=== PATIENT | male | born 1960 | race Caucasian/White ===

== ENCOUNTER 2018-04-05 10:33 | Outpatient (REF) | payer BC, SELFPAY ==
[2018-04-05 19:41] LABS: Anion Gap 9.3 mmol/L (3-11); BUN 19 mg/dL (7-18); CO2 29.7 mmol/L (21.0-32.0); CREATININE 0.93 mg/dL (0.70-1.30); Calcium 9.2 mg/dL (8.5-10.1); Chloride 101 mmol/L (98-107); Glucose 107 mg/dL (70-100); Potassium 4.4 mmol/L (3.5-5.1); Sodium 140 mmol/L (136-145)
[2018-04-06 17:22] LABS: HDL Cholesterol 46 mg/dL (40-60); LDL CHOLESTEROL 94 mg/dL (<100); Triglyceride 112 mg/dL (30-150)
[2018-04-06 17:39] LABS: Cholesterol 166 mg/dL (50-200)
[2018-04-07 10:09] LABS: PSA, Screening 0.6 ng/ml (0-3.5)
[2018-04-07 10:15] LABS: Hepatitis C Ab w Rflx HCV PCR Negative (NEGAT)
== END 2018-04-05 10:53 ==
LOC: NCHCN 10:33
PROVIDERS: PCP Internal Medicine; Visit Provider Family Medicine
DX: Z00.00 Encounter for general adult medical examination without abnormal findings (principal); E78.5 Hyperlipidemia, unspecified; I10 Essential (primary) hypertension; Z12.5 Encounter for screening for malignant neoplasm of prostate; Z80.42 Family history of malignant neoplasm of prostate; Z11.59 Encounter for screening for other viral diseases
CPT/HCPCS: 80048; 80061; 83721; 84153; 86803

== ENCOUNTER 2018-07-23 09:38 | Emergency (ER) | payer BC, SELFPAY ==
--- NOTE | 2018-07-23 09:45 | NUR.NOTE ---
pt has had a steady pain 2/10 pain in his lower right back for the past 8-14 months. after sleeping on the couch last night PT woke up to 9/10 pain in the same location constants pain not pulsating
[2018-07-23 09:47] VITALS: BP 166/104; PULSE 89; RESP 16; TEMP 37.2; O2SAT 96
--- NOTE | 2018-07-23 10:12 | DI.RAD_ITS ---
SYMPTOM/DIAGNOSIS: BACK PAIN LUMBAR SPINE: There are no prior comparison exams. There is no evidence of compression fracture. Degenerative disc changes are noted throughout. There are also facet degenerative changes causing slight spondylolisthesis at L 4-5. There is also a degenerative scoliosis. The SI joints are unremarkable. IMPRESSION: Degenerative changes. No acute abnormality.
--- NOTE | 2018-07-23 10:14 | ED.GENADUL_ITS ---
Discharge Plan Disposition Patient Disposition: HOME Discharge Details Chief Complaint: Nk/Back Pain Primary Care Provider: Judson Donovan ED Provider: Ramon Horton Home Meds and New Rx's Prescriptions: New diclofenac potassium 50 mg tablet 50 mg PO TID PRN (Reason: pain) Qty: 15 RF: 0 cyclobenzaprine 10 mg tablet 10 mg PO TID PRN (Reason: muscle spasm) Qty: 20 RF: 0 Continued atorvastatin 20 mg Tablet 20 mg PO DAILY RF: 0 losartan-hydrochlorothiazide 50-12.5 mg Tablet 1 tab PO DAILY RF: 0 Discharge Data Discharge Date/Time-TO BE ENTERED AT DEPARTURE: 07/23/18 11:52 Medical Decision Making Patient presenting to the emergency department for chief complaint of back pain. Patient states long ongoing back pain for greater than 1 year but last night he slept on the couch and noticed waking up this morning having significant wors ening discomfort. Patient denies any injury or trauma, fall, saddle anesthesia, fever chills, changes in bowel or bladder function. Patient does have tenderness to the lumbar back both vertebral and paraspinal muscles, with more so noted on the right than the left. Patient otherwise has no neurological dysfunction, no signs of cauda equina, no signs of epidural abscess, no neurological dysfunction of lower extremities. Given that patient does state ongoing back pain for greater than 1 year that has not been imaged in the past I did offer patient radiological imaging of the back which she agreed to. Pending results patient given Flexeril, ketorolac, and lidocaine patch Review of radiological imaging and radiologist interpretation shows IMPRESSION: Moderate to severe multilevel degenerative changes including degenerative disc disease, spondylosis and facet degenerative changes. Reassessed patient and patient did state some improvement of discomfort. Patient was prescribed diclofenac and Flexeril to use at home and encouraged to follow-up with his primary care provider for reassessment if not improving. Patient was also given a referral to physical therapy. Return precautions were discussed. After discussion of diagnosis and plan of care patient has no further needs, questions, or concerns and states clear understanding to return to the emergency department for any worsening symptoms. HPI General Mode of arrival: ambulatory . Date/Time Provider Initiated Documentation: 07/23/18 09:50 . Limitations to Documentation: no limitations . Information obtained by: patient, family and RN notes reviewed . History of Present Illness 57 year old M presents to the emergency department with the chief complaint of back pain, described as severe, with intensity rated at 9. Quality is described as sharp, and is localized to the back. Patient reports radiation to (right hip). Patient started experiencing this hour(s) (5) and it has been constant. Movement worsens symptoms . Patient notes no other symptoms.. Patient did receive the following treatments prior to arrival, NSAID Related Data Home Medications Medication Instructions Recorded Confirmed atorvastatin 20 mg PO DAILY 07/23/18 07/23/18 cyclobenzaprine 10 mg PO TID PRN #20 tab 07/23/18 diclofenac potassium 50 mg PO TID PRN #15 tab 07/23/18 losartan-hydrochlorothiazide 1 tab PO DAILY 07/23/18 07/23/18 Previous Rx's Medication Instructions Recorded cyclobenzaprine 10 mg PO TID PRN #20 tab 07/23/18 diclofenac potassium 50 mg PO TID PRN #15 tab 07/23/18 Allergies Allergy/AdvReac Type Severity Reaction Status Date / Time No Known Allergies Allergy Unverified 07/23/18 09:49 General Stated Complaint: Nk/Back Pain ANTHONY: 3 Review of Systems Constitutional Denies chills and Denies fever(s) Cardiovascular Denies chest pain and Denies dyspnea Respiratory Denies cough and Denies dyspnea Gastrointestinal Denies abdominal pain, Denies change in bowel habits, Denies diarrhea, Denies na usea and Denies vomiting Genitourinary Denies difficulty urinating and Denies urinary incontinence Musculoskeletal Reports as per HPI and Reports back pain Neurologic Denies sensory deficit PFS Social History Smoking/Tobacco Use Status: Never Alcohol Intake: current Alcohol Intake frequency: a few times a month Drug use: Occasionally Substance use type: marijuana Do you feel safe at home: Yes Do you feel safe in your relationship?: Yes Exam Const General: cooperative Orientation: alert, awake and oriented x3 Neck Neck: normal visual inspection, full ROM and no meningeal signs Resp Effort & Inspection: normal respiratory effort Auscultation: clear to auscultation bilaterally Cardio Rate: regular rate Rhythm: regular rhythm Heart Sounds: S1 normal and S2 normal GI Palpation: no hepatosplenomegaly, no aortic enlargement, no masses and no pulsa tile masses Back/Spine/Pelvis Back: no CVA tenderness Thoracic/Lumbar Spine: No mass, pain with thoraco-lumbar ROM, paraspinal tenderness, thoraco-lumbar ROM limited, No thoracic spinal tenderness, lumbar spinal tenderness and straight leg raise positive Pelvis: no pain with anterior-posterior compression and no pain with lateral compression Neuro General: alert, awake and oriented x3 DTR's: Rt Patellar: 2+, Lt Patellar: 2+, Rt Ankle: 2+ and Lt Ankle: 2+ Course Vital Signs Temperature 37.2 C 07/23/18 09:47 Pulse 89 07/23/18 09:47 Respiratory Rate 16 07/23/18 09:47 Blood Pressure 166/104 H 07/23/18 09:47 Pulse Oximetry 96 07/23/18 09:47 Temperature 37.2 C 07/23/18 09:47 Temperature Source Skin 07/23/18 09:47 Pulse 89 07/23/18 09:47 Respiratory Rate 16 07/23/18 09:47 Respiratory Effort 07/23/18 09:51 Blood Pressure 166/104 H 07/23/18 09:47 Pulse Oximetry 96 07/23/18 09:47 Oxygen Delivery Method Room Air 07/23/18 09:47 Oxygen Flow Rate 0 07/23/18 09:47 Pain Level 9 07/23/18 09:47
[2018-07-23] MEDS: Cyclobenzaprine 10 MG TAB PO (10:27)
[2018-07-23] MEDS: Ketorolac 60 MG/2 ML VIAL IM (10:27)
[2018-07-23] MEDS: Lidocaine 5% Patch 1 PATCH TP (10:30)
--- NOTE | 2018-07-23 11:00 | DI.VRAD_ITS ---
EXAM: XR Lumbosacral Spine, 4 or 5 Views EXAM DATE/TIME: 07/23/2018 10:14 AM CLINICAL HISTORY: 57 years old, male; Low back pain TECHNIQUE: Imaging protocol: XR of the lumbosacral spine, 4 or 5 views. COMPARISON: No relevant prior studies available. FINDINGS: Vertebrae: Mild levoscoliosis. Moderate to severe multilevel degenerative changes including degenerative disc disease, spondylosis and facet degenerative changes. Vasculature: Calcification of the abdominal aorta and/or iliac arteries consistent with atherosclerotic vessel disease. Soft tissues: Normal. IMPRESSION: Moderate to severe multilevel degenerative changes including degenerative disc disease, spondylosis and facet degenerative changes. Dictated and Authenticated by: Daryl Edwards MD. Ordering:KISHAN Navarro MD
--- NOTE | 2018-07-23 11:52 | NUR.NOTE ---
pt states my back hurst like 70% less
[2018-07-23 11:53] VITALS: BP 166/80; PULSE 89; RESP 16; TEMP 37.2; O2SAT 96
== END 2018-07-23 11:52 | disposition home or self-care (01) ==
PROVIDERS: Emergency Provider Nurse Practitioner Family; PCP Family Medicine
DX: M54.5 Low back pain (principal); G89.29 Other chronic pain
CPT/HCPCS: 96372; 99284; 72110; J1885

== ENCOUNTER 2019-11-10 17:13 | Outpatient (REF) | payer BC, SELFPAY ==
[2019-11-10 19:53] LABS: Anion Gap 9.4 mmol/L (3-11); BUN 18 mg/dL (7-18); CO2 28.6 mmol/L (21.0-32.0); CREATININE 0.96 mg/dL (0.70-1.30); Calcium 9.2 mg/dL (8.5-10.1); Chloride 100 mmol/L (98-107); Glucose 98 mg/dL (74-106); Potassium 3.4 mmol/L (3.5-5.1); Sodium 138 mmol/L (136-145)
[2019-11-13 08:56] LABS: PSA, Screening 0.7 ng/mL (0.0-4.5)
== END 2019-11-10 17:33 ==
LOC: NCHCN 17:13
PROVIDERS: PCP Family Medicine; Visit Provider Family Medicine
DX: Z00.00 Encounter for general adult medical examination without abnormal findings (principal); I10 Essential (primary) hypertension; Z12.5 Encounter for screening for malignant neoplasm of prostate; Z80.42 Family history of malignant neoplasm of prostate
CPT/HCPCS: 80048; 84153

== ENCOUNTER 2020-05-11 14:30 | Emergency (ER) | payer OTHER, SELFPAY ==
[2020-05-11 14:34] VITALS: BP 152/52; PULSE 107; RESP 20; TEMP 36.6; O2SAT 96
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
--- NOTE | 2020-05-11 15:54 | NUR.NOTE ---
Nursing Note: [facility] for follow up of dominant hand foreign body. To be seen [facility]. Jennifer Vance
== END 2020-05-11 16:10 | disposition home or self-care (01) ==
PROVIDERS: Emergency Provider Physician Assistant; PCP Family Medicine
DX: S61.246A Puncture wound with foreign body of right little finger without damage to nail, initial encounter (principal); W45.8XXA Other foreign body or object entering through skin, initial encounter; M79.5 Residual foreign body in soft tissue
CPT/HCPCS: 10120

== ENCOUNTER 2020-09-23 18:44 | Emergency (ER) | payer OTHER, SELFPAY ==
[2020-09-23 18:50] VITALS: BP 146/96; PULSE 92; RESP 16; TEMP 36.2; O2SAT 96
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
[2020-09-23] MEDS: MORPHine 10 MG/ML VIAL 4 MG IVP (19:29)
[2020-09-23 19:30] VITALS: BP 143/88; PULSE 89; RESP 16; O2SAT 95
[2020-09-23] MEDS: Bacitracin 30 GM TUBE TP (19:55)
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
[2020-09-23] MEDS: HYDROmorphone 2 MG/ML VIAL (20:08)
[2020-09-23 20:09] VITALS: BP 135/98; PULSE 101; RESP 16; O2SAT 94
== END 2020-09-23 20:20 | disposition home or self-care (01) ==
PROVIDERS: Emergency Provider Physician Assistant; PCP Family Medicine
DX: T22.212A Burn of second degree of left forearm, initial encounter (principal); T20.22XA Burn of second degree of lip(s), initial encounter; T20.24XA Burn of second degree of nose (septum), initial encounter; T23.251A Burn of second degree of right palm, initial encounter; X03.0XXA Exposure to flames in controlled fire, not in building or structure, initial encounter
CPT/HCPCS: 96374; 96375; 99284; J2270

== ENCOUNTER 2021-10-10 14:49 | Outpatient (REF) | payer OTHER, SELFPAY ==
[2021-10-10 15:38] LABS: Anion Gap 8.5 mmol/L (3-11); BUN 21 mg/dL (7-18); CO2 28.5 mmol/L (21.0-32.0); Calcium 9.4 mg/dL (8.5-10.1); Chloride 97 mmol/L (98-107); Glucose 92 mg/dL (74-106); Potassium 3.8 mmol/L (3.5-5.1); Sodium 134 mmol/L (136-145)
== END 2021-10-10 14:50 | disposition home or self-care (01) ==
LOC: NCHCN 14:49
PROVIDERS: PCP Family Medicine; Visit Provider Family Medicine
DX: I10 Essential (primary) hypertension (principal)
CPT/HCPCS: 80048

== ENCOUNTER 2022-03-18 01:30 | Outpatient (CLI) | payer OTHER, SELFPAY ==
--- NOTE | 2022-03-18 | DI.RAD_ITS ---
Exam(s) XR KNEE LT 3V AP,LAT,PILO EXAM: XR KNEE LT 3V AP,LAT,PILO CLINICAL HISTORY: LEFT KNEE PAIN M25.562. TECHNIQUE: 2D digital imaging was performed. Three views. COMPARISON: No exams were available for comparison FINDINGS: BONES: No acute fracture is present. No bony destructive lesion is seen. JOINTS: Moderate narrowing of the medial femoral tibial joint space. Periarticular spurring is mild throughout. The knee is normally aligned. No joint effusion is seen. SOFT TISSUE: Calcification adjacent to medial femoral condyle and expected location of medial collate ral ligament. IMPRESSION: Degenerative changes greatest at the medial femoral tibial joint. DATA REPOSITORY: RADIATION DOSE DELIVERED:
== END 2022-03-18 01:50 ==
LOC: DI 01:33
PROVIDERS: PCP Family Medicine; Visit Provider Family Medicine
DX: M17.12 Unilateral primary osteoarthritis, left knee (principal)
CPT/HCPCS: 73562

== ENCOUNTER 2022-08-06 07:03 | Day surgery (SDC) | payer OTHER, SELFPAY ==
--- NOTE | 2022-08-05 21:33 | W.PM.DSUDISC ---
Date of service: 08/06/22 Time of Service: 08:48 Discharge Plan Disposition Patient Disposition: Home Condition: Good Discharge Details Reason For Visit: Screening colonoscopy Attending Provider: Renny Brandon Primary Care Provider: Judson Donovan Home Meds and New Rx's Prescriptions: Continued losartan 100 mg tablet 100 mg PO DAILY hydrochlorothiazide 25 mg tablet 25 mg PO DAILY atorvastatin 20 mg Tablet 20 mg PO DAILY amlodipine 5 mg tablet 5 mg PO DAILY Patient Comments: TAKE 1 TABLET BY MOUTH DAILY FOR BLOOD PRESSURE sildenafil 100 mg tablet 25 mg PO PRN PRN Patient Comments: TAKE 1/4 TABLET BY MOUTH PRIOR TO INTERCOURSE NEEDED valacyclovir 500 mg tablet 1,000 mg PO PRN PRN Patient Comments: TK 2 TS PO IN THE MORNING. REPEAT IN 12 H PRN FOR COLD SORE multivitamin,[id number]-irud-Hu-FA-min Tablet 1 tab PO DAILY clobetasol-emollient 0.05 % cream 1 applic TOPICAL PRN PRN Patient Comments: APPLY A SMALL AMOUNT TO AFFECTED AREA(S) DIRECTED ONCE DAILY NEEDED Discontinued polyethylene glycol 3350 17 gram/dose powder 238 g PO ONCE Qty: 238 0RF Rx Instructions: take per colonoscopy instructions bisacodyl [Dulcolax (bisacodyl)] 5 mg tablet,delayed release (DR/EC) 5 mg PO ONCE Qty: 4 0RF Rx Instructions: take per colonoscopy instructions No Action Fish Oil Capsule 1 cap PO DAILY Discharge Instructions Instructions: Rubber Band Ligation (DC) Additional Instructions: Bill, we were able to complete your colonoscopy today without any difficulty. The quality of your preparation was excellent. You do have diverticulosis. Have attached some information here regarding general management of diverticular disease. As you mentioned before the procedure, you also have a fair amount of internal hemorrhoids. I did perform rubber band ligation of 2 dominant hemorrhoids today. You may experience some discomfort in the area, as well as a sense of fullness around your anus. It should not be too painful. If you do experience pain, please let me know. The bands will be shed with your bowel movement over the next week or so. Do not be alarmed if you have a little bit of blood with your bowel movements, or you notice some tissue or rubber bands in the toilet. We can see how this treatment goes. One of the advantages of rubber band ligation is that it can be performed again in the future if necessary. Please feel free to schedule if your hemorrhoids continue to bother you. Otherwise, your colonoscopy was negative for polyps or any signs of colon cancer. You should consider another screening colonoscopy in 10 years to reduce your chances of colon cancer in the future. 1. If tolerated, consume a soft, low fiber diet for 1-2 days. 2[address] Do not drive, drink alcohol, operate machinery, make critical decisions, or do activities that require coordination or balance for 24 hours. 3. Because air was put into your colon during the procedure, expelling air from your rectum (passing gas or farting) is normal. 4. You may not have a bowel movement for 1-3 days because of the colonoscopy prep. This is normal. 5. Go directly to the emergency room if you notice any of the following: Develop chills (warm to touch), or if you have a thermometer and your temperature is above 101 Difficulty breathing or difficultly swallowing Persistent vomiting Severe abdominal pain, other than gas cramps Severe chest pain Black, tarry stools Any bleeding ? exceeding one tablespoon 6. Call your physician if the site where your intravenous was started becomes red, swollen, painful, and warm to touch. 7. Your physician has reviewed your pre-procedure medications. Please continue to take those medications as previously ordered. You will be given specific information/education regarding any changes to your medications before leaving. Activity:: Activity as Tolerated Diet:: As Tolerated Discharge Orders Discharge Orders: Discharge Order (Routine); Ordered 08/05/22 Ordered By: Renny Brandon DS: Diagnosis Discharge Diagnosis (1) Screen for colon cancer: Status: Acute Asessment and Plan: Negative screening colonoscopy.
--- NOTE | 2022-08-05 21:34 | W.COLOREPORT ---
Date of service: 08/06/22 Time of Service: 08:51 Colonoscopy Report Date of procedure: 08/06/22 Pre-op diagnosis general: Screening colonoscopy Post-op diagnosis procedure note: other (Diverticulosis, internal hemorrhoids.) Procedure: Colonoscopy with hemorrhoid banding Surgeon: Rneny Brandon Anesthesia Type: General:No Airway Estimated blood loss (mL): 0 Pathology: none sent Complications: None Disposition: same day Indications: Will is a 61-year-old male who is due for screening colonoscopy. Incidentally he has internal hemorrhoids Prep: Miralax/Dulcolax Procedure Start Time: 08:21 Procedure End Time: 08:43 Retraction Time: 13 Findings: Diverticulosis, internal hemorrhoids Procedure Description: After the induction of monitored anesthetic care, and with the patient in left lateral decubitus position, I began by performing an external anorectal exam.? Perineum and skin were normal, as was the anal verge.? There were no thrombosed external hemorrhoids.? Next, I performed a digital rectal exam.? There were a palpable internal hemorrhoids.? Next, I advanced a colonoscope into the rectal vault.? I performed retroflexion.? There were large internal hemorrhoids with mild inflammation.? Using insufflation, I then advanced the colonoscope beyond the rectal folds and into the sigmoid colon before advancing towards the cecum.? There is extensive wid[place]outh sigmoid diverticulosis. The diverticula extend into the descending colon, and there are sporadic diverticula along the length of the intestine. The quality of the prep was outstanding.? The scope was noted to be in the cecum by identification of the ileocecal valve and appendiceal orifice.? I then began withdrawing the colonoscope using repeated irrigation as necessary for full evaluation of the colonic mucosa. ?Once the scope was withdrawn to the level of the rectum, great care was taken to examine portions of the rectal folds.? I did not see any evidence of polyps or tumors. Next I withdrew the colonoscope, and inserted a fiberoptic lit anoscope. Although there was internal hemorrhoid disease of all 3 columns, there were 2 dominant hemorrhoids in the left lateral and right posterior column. I performed suction rubber band ligation here. The patient was then brought to the same-day surgery recovery unit as the anesthetic wore off. ?The findings and instructions were shared with the patient prior to discharge.
[2022-08-06 07:05] VITALS: BP 150/110; PULSE 96; RESP 18; TEMP 37; O2SAT 98
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
[2022-08-06 08:04] VITALS: BMI 27.8
[2022-08-06] MEDS: Lactated Ringers 1,000 ML 80 ML IV (08:12)
[2022-08-06 08:53] VITALS: BP 146/95; PULSE 83; RESP 18; TEMP 36.5; O2SAT 96
[2022-08-06] MEDS: Hyoscyamine 0.125 MG SL/ORAL/CHEW SL (09:05)
[2022-08-06 09:23] VITALS: BP 167/101; PULSE 91; RESP 18; TEMP 36.6; O2SAT 96
[2022-08-06] MEDS: Ondansetron 4 MG/2 ML VIAL IVP (10:00)
--- NOTE | 2022-08-06 10:05 | W.ANESPOSTOP ---
Postoperative Evaluation Date, Time and Location Date Performed: 08/06/22 Time Performed: 10:05 Patient Location: Day Surgery Unit Vital Signs Most Recent Imported Vital Signs: Most Recent Vital Signs Temp Pulse Resp BP Pulse Ox 36.6 C 91 H 18 167/101 H 96 08/06/22 09:23 08/06/22 09:23 08/06/22 09:23 08/06/22 09:23 08/06/22 09:23 Pain Score Most Recent Pain Score: Most Recent Pain Score Pain Level 3 08/06/22 09:23 Assessment Mental Status: Awake (Alert & Oriented to Patient Baseline) Airway and Respiratory Function: Patent airway with normal (patient baseline) respiratory exam Cardiovascular Function: Hemodynamically Stable Hydration Status: Adequately Hydrated Nausea & Vomiting: No Nausea or Vomiting Pain: Pain is tolerable per patient Peripheral Nerve Block: Patient did not receive a nerve block
== END 2022-08-06 07:04 | disposition home or self-care (01) ==
PROVIDERS: PCP Family Medicine; Visit Provider Surgery
PROC: 0DJD8ZZ Inspection of Lower Intestinal Tract, Via Natural or Artificial Opening Endoscopic (ICD-10-PCS; CPT 45378; principal; 2022-08-06 08:15)
PROC: (CPT 46221; 2022-08-06 08:15)
DX: Z12.11 Encounter for screening for malignant neoplasm of colon (principal); K57.30 Diverticulosis of large intestine without perforation or abscess without bleeding; K64.8 Other hemorrhoids
CPT/HCPCS: 46221; 45378; J2001; J2405; J2704; J3490

== ENCOUNTER 2023-06-03 12:59 | Outpatient (REF) | payer OTHER, SELFPAY ==
[2023-06-03 16:23] LABS: Anion Gap 11.8 mmol/L (3-11); BUN 14 mg/dL (7-18); CO2 28.2 mmol/L (21.0-32.0); CREATININE 0.8 mg/dL (0.70-1.30); Calcium 9.7 mg/dL (8.5-10.1); Calculated LDL 102 mg/dL (<100); Chloride 102 mmol/L (98-107); Cholesterol 192 mg/dL (<200); Estimated GFR 99.44 (mL/min/1.73m2); Glucose 107 mg/dL (74-106); HDL Cholesterol 60 mg/dL (40-60); Potassium 3.9 mmol/L (3.5-5.1); Sodium 142 mmol/L (136-145); Triglyceride 153 mg/dL (<150)
[2023-06-03 18:03] LABS: Hemoglobin A1C 5.9 % (<5.7)
[2023-06-03 22:39] LABS: PSA, Screening 0.7 ng/mL (<=4.5)
[2023-06-03 23:21] LABS: HIV-1/2 Ag & Ab Screen Negative (Negative)
== END 2023-06-03 13:00 | disposition home or self-care (01) ==
LOC: NCHCN 12:59
PROVIDERS: PCP Family Medicine; Visit Provider Family Medicine
DX: Z00.00 Encounter for general adult medical examination without abnormal findings (principal); I10 Essential (primary) hypertension; Z13.6 Encounter for screening for cardiovascular disorders; Z12.5 Encounter for screening for malignant neoplasm of prostate; Z13.1 Encounter for screening for diabetes mellitus
CPT/HCPCS: 80048; 80061; 84153; 87389; 83036

== ENCOUNTER 2025-02-02 16:03 | Outpatient (REF) | payer OTHER, SELFPAY ==
[2025-02-02 21:50] LABS: Cholesterol 152 mg/dL (<200); HDL Cholesterol 46 mg/dL (>40)
[2025-02-02 22:05] LABS: Microalb ug/mg Crea 1.7 ug/mg Cr
[2025-02-02 22:06] LABS: Hemoglobin A1C 5.6 % (<5.7)
[2025-02-05 09:13] LABS: PSA, Screening 0.8 ng/mL (<=4.5)
== END 2025-02-02 16:04 | disposition home or self-care (01) ==
LOC: NCHCN 16:03
PROVIDERS: PCP Family Medicine
DX: I10 Essential (primary) hypertension (principal); Z13.6 Encounter for screening for cardiovascular disorders; Z13.1 Encounter for screening for diabetes mellitus
CPT/HCPCS: 80061; 84153; 82043; 82570; 83036